=== PATIENT | female | born 1975 | race American Indian/Alaskan Native ===

== ENCOUNTER 2017-04-22 21:24 | Emergency (ER) | payer SELFPAY ==
[2017-04-22 22:41] LABS: Basophils % (Auto) 0.5 % (0.0-1.8); Eosinophils % (Auto) 2.3 % (0.0-4.3); Hemoglobin 9.9 gm/dl (10.1-14.3); Mean Corpuscular HGB Conc 31 % (30-34); Mean Corpuscular Volume 74 fl (79-97); Platelet Count 482 K/mm3 (140-440); Red Blood Count 4.32 M/mm3 (3.65-5.03); Red Cell Distribution Width 17.7 % (13.2-15.2); White Blood Count 8.9 K/mm3 (4.5-11.0)
[2017-04-22 22:44] LABS: Mean Corpuscular Hemoglobin 23 pg (28-32)
[2017-04-22 22:50] LABS: Alanine Aminotransferase 13 units/L (7-56); Albumin 4.1 g/dL (3.9-5); Albumin/Globulin Ratio 1.1 %; Alkaline Phosphatase 45 units/L (35-129); Anion Gap 18 mmol/L; BUN/Creatinine Ratio 15; Bilirubin,Total < 0.20 mg/dL (0.1-1.2); Blood Urea Nitrogen 9 mg/dL (7-17); Calcium 9.1 mg/dL (8.4-10.2); Carbon Dioxide 22 mmol/L (22-30); Chloride 102.5 mmol/L (98-107); Glucose 93 mg/dL (65-100); Sodium 138 mmol/L (137-145); Total Protein 7.8 g/dL (6.3-8.2)
[2017-04-23 12:52] VITALS: BP 115/77
--- NOTE | 2017-04-23 12:52 | Emergency Department Report ---
ED General Adult HPI - General Chief complaint: Nausea/Vomiting/Diarrhea Stated complaint: N/V Time Seen by Provider: 04/23/17 12:49 Source: patient Mode of arrival: Ambulatory Limitations: No Limitations - History of Present Illness Initial comments: The patient arrives with her daughter who is here with similar complaints. This is the second emergency department visit for vague abdominal pain and vomiting. The patient has not vomited today. She is able to take by mouth. She denies any fever or chills or urinary symptoms. The mother states that they believe that this problem has been secondary to spoiled Carlo. It began a few days ago after they ate this hospital. Mother states that she felt ill again after she ate a pasta again yesterday. At this time the child was asymptomatic as well as the mother. -: Gradual Location: abdomen Radiation: non-radiation Severity scale (0 -10): 6 Quality: dull Consistency: intermittent Improves with: none Worsens with: none Associated Symptoms: denies other symptoms Treatments Prior to Arrival: none - Related Data Allergies Allergy/AdvReac Type Severity Reaction Status Date / Time No Known Allergies Allergy Verified 04/22/17 21:49 ED Review of Systems ROS: Stated complaint: N/V Other details as noted in HPI ED Past Medical Hx - Past Medical History Previous Medical History?: No - Surgical History Past Surgical History?: No - Social History Smoking Status: Never Smoker Substance Use Type: None ED Physical Exam - General Limitations: No Limitations General appearance: alert, in no apparent distress - Head Head exam: Present: atraumatic, normocephalic - Eye Eye exam: Present: normal appearance, PERRL, EOMI. Absent: scleral icterus - ENT ENT exam: Present: mucous membranes moist - Neck Neck exam: Present: normal inspection. Absent: tenderness, meningismus - Respiratory Respiratory exam: Present: normal lung sounds bilaterally. Absent: respiratory distress - Cardiovascular Cardiovascular Exam: Present: regular rate, normal rhythm. Absent: systolic murmur, diastolic murmur, rubs, gallop - GI/Abdominal GI/Abdominal exam: Present: soft, normal bowel sounds. Absent: distended, tenderness, guarding, rebound, rigid - Extremities Exam Extremities exam: Present: normal inspection - Back Exam Back exam: Present: normal inspection - Neurological Exam Neurological exam: Present: alert, oriented X3 - Psychiatric Psychiatric exam: Present: normal affect, normal mood - Skin Skin exam: Present: warm, dry, intact, normal color. Absent: rash ED Course Vital Signs 04/22/17 04/23/17 04/23/17 21:49 04:31 07:55 Temperature 98.6 F 98.3 F 98.4 F Pulse Rate 75 73 69 Respiratory 20 18 18 Rate Blood Pressure 123/78 112/69 Blood Pressure 111/76 [Right] O2 Sat by Pulse 99 100 Oximetry 04/23/17 12:51 Temperature 98.1 F Pulse Rate 64 Respiratory 18 Rate Blood Pressure Blood Pressure 115/77 [Right] O2 Sat by Pulse 100 Oximetry - Reevaluation(s) Reevaluation #1: Patient now asymptommatic. 04/23/17 14:38 ED Medical Decision Making - Lab Data Result diagrams: 04/22/17 22:18 04/22/17 22:19 Laboratory Results - last 24 hr 04/22/17 04/22/17 04/22/17 22:13 22:18 22:19 WBC 8.9 RBC 4.32 Hgb 9.9 L Hct 32.0 MCV 74 L MCH 23 L MCHC 31 RDW 17.7 H Plt Count 482 H Lymph % (Auto) 27.3 [place] % (Auto) 6.4 Eos % (Auto) 2.3 Baso % (Auto) 0.5 Lymph # 2.4 [place] # 0.6 Eos # 0.2 Baso # 0.0 Seg Neutrophils % 63.5 Seg Neutrophils # 5.6 Sodium 138 Potassium 4.0 Chloride 102.5 Carbon Dioxide 22 Anion Gap 18 BUN 9 Creatinine 0.6 L Estimated GFR > 60 BUN/Creatinine Ratio 15 Glucose 93 Calcium 9.1 Total Bilirubin < 0.20 AST 14 ALT 13 Alkaline Phosphatase 45 Total Protein 7.8 Albumin 4.1 Albumin/Globulin Ratio 1.1 HCG, Qual Negative Laboratory Results - last 24 hr 04/22/17 04/22/17 04/22/17 22:13 22:18 22:19 WBC 8.9 RBC 4.32 Hgb 9.9 L Hct 32.0 MCV 74 L MCH 23 L MCHC 31 RDW 17.7 H Plt Count 482 H Lymph % (Auto) 27.3 [place] % (Auto) 6.4 Eos % (Auto) 2.3 Baso % (Auto) 0.5 Lymph # 2.4 [place] # 0.6 Eos # 0.2 Baso # 0.0 Seg Neutrophils % 63.5 Seg Neutrophils # 5.6 Sodium 138 Potassium 4.0 Chloride 102.5 Carbon Dioxide 22 Anion Gap 18 BUN 9 Creatinine 0.6 L Estimated GFR > 60 BUN/Creatinine Ratio 15 Glucose 93 Calcium 9.1 Total Bilirubin < 0.20 AST 14 ALT 13 Alkaline Phosphatase 45 Total Protein 7.8 Albumin 4.1 Albumin/Globulin Ratio 1.1 HCG, Qual Negative Urine Color Urine Turbidity Urine pH Ur Specific [place] Urine Protein Urine Glucose (UA) Urine Ketones Urine Blood Urine Nitrite Urine Bilirubin Urine Urobilinogen Ur Leukocyte Esterase Urine WBC (Auto) Urine RBC (Auto) Urine Mucus 04/23/17 13:36 WBC RBC Hgb Hct MCV MCH MCHC RDW Plt Count Lymph % (Auto) [place] % (Auto) Eos % (Auto) Baso % (Auto) Lymph # [place] # Eos # Baso # Seg Neutrophils % Seg Neutrophils # Sodium Potassium Chloride Carbon Dioxide Anion Gap BUN Creatinine Estimated GFR BUN/Creatinine Ratio Glucose Calcium Total Bilirubin AST ALT Alkaline Phosphatase Total Protein Albumin Albumin/Globulin Ratio HCG, Qual Urine Color Yellow Urine Turbidity Clear Urine pH 5.0 Ur Specific [place] 1.020 Urine Protein <15 mg/dl Urine Glucose (UA) Neg Urine Ketones Neg Urine Blood Mod Urine Nitrite Neg Urine Bilirubin Neg Urine Urobilinogen < 2.0 Ur Leukocyte Esterase Neg Urine WBC (Auto) 1.0 Urine RBC (Auto) 35.0 Urine Mucus 2+ Critical care attestation.: If time is entered above; I have spent that time in minutes in the direct care of this critically ill patient, excluding procedure time. ED Disposition Clinical Impression: Abdominal pain Qualifiers: Abdominal location: epigastric Qualified Code(s): R10.13 - Epigastric pain Anemia Qualifiers: Anemia type: unspecified type Qualified Code(s): D64.9 - Anemia, unspecified Disposition: - TO HOME OR SELFCARE Is pt being admited?: No Does the pt Need Aspirin: No Condition: Stable Instructions: Acute Abdominal Pain (ED), Anemia (ED) Additional Instructions: Follow up with a primary care physician. You are mildly anemic and that should be followed up on. I would recommend over the counter iron suppliments. Return any acute change or problems. Referrals: PRIMARY CARE, [Primary Care Provider] - 3-5 Days Time of Disposition: 14:41
[2017-04-23 14:01] LABS: Bilirubin,Urine NEG (Negative); Blood,Urine MOD (Negative); Ketones,Urine NEG (Negative); Leukocyte Esterase,Urine NEG (Negative); Mucus,Urine 2+ /HPF; Nitrite,Urine NEG (Negative); Protein,Urine <15 mg/dL mg/dL (Negative); Urobilinogen,Urine < 2.0 mg/dL (<2.0)
== END 2017-04-23 15:00 | disposition home or self-care (01) ==
LOC: ED 21:24
DX: D64.9 Anemia, unspecified (principal); R10.13 Epigastric pain
CPT/HCPCS: 36415; 80053; 81001; 84703; 85025